=== PATIENT | male | born 2000 | race Caucasian/White ===

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

== ENCOUNTER 2019-01-22 05:52 | Emergency (ER) | payer OTHER ==
--- NOTE | 2019-01-22 05:56 | PDOC ---
History of Present Illness - General Stated Complaint: FAST HEART RATE Time Seen by Provider: 01/22/19 05:55 History Source: Patient - History of Present Illness Initial Comments: 01/22/19 06:03 The patient is a 18 year old male with no reported significant PMHx who presents to the ED c/o fast heart rate. Patient reports that he drank two energy drinks (each containing 350 mg of caffeine) yesterday. The first drink was around 9-10 a.m. and the second drink was around 5-6 p.m. yesterday. The patient also had two beer around 12:30 a.m. Patient states he got home around 3:30 a.m. and when he was unable to sleep because his heart was racing he decided to come to the ED. The patient denies associated chest pain, lightheadedness, shortness of breath. States he had an episode of palpitations on one prior occasion for which he was evaluated in another ED. No cardiology evaluation; no known history of familial cardiac at a young age. As per EMR, patient evaluated in our ED in 2014 for anterior chest that radiated to his back. No concerning findings on EKG or CT chest, symptomatic improvement with NSAID and patient discharged home. Past History - Past Medical History Allergies/Adverse Reactions: Allergies Allergy/AdvReac Type Severity Reaction Status Date / Time No Known Allergies Allergy Verified 02/05/18 03:27 Home Medications: Ambulatory Orders NK [No Known Home Medication] 01/22/19 Anemia: No Asthma: No Cancer: No COPD: No - Surgical History Abdominal Surgery: No Appendectomy: No Cardiac Surgery: No Cholecystectomy: No - Immunization History Immunization Up to Date: Yes - Psycho Social/Smoking Cessation Hx Smoking Status: No Smoking History: Never smoked Have you smoked in the past 12 months: No Number of Cigarettes Smoked Daily: 0 Hx Alcohol Use: No Drug/Substance Use Hx: No Substance Use Type: None Review of Systems - Review of Systems Constitutional: No: Chills, Fever Respiratory: No: Shortness of Breath Cardiac (ROS): Yes: Palpitations. No: Lightheadedness, Syncope ABD/GI: No: Constipated, Diarrhea, Nausea, Vomiting *Physical Exam - Physical Exam Comments: 01/22/19 06:27 Triage VS reviewed General: well appearing, mildly anxious, NAD CV: S1, S2, RRR no murmur Respiratory: CLTA B/L Abdomen: soft, non-tender Extremity: no lower extremity edema Neuro: A&O x3, CN II-XII intact Heart Score/ECG Review - ECG Impressions Comment:: 01/22/19 06:13 HR 76, NSR with no MARISELA/STD/TWI, good R wave progression V1-V6 ED Treatment Course - LABORATORY CBC & Chemistry Diagram: 01/22/19 06:25 01/22/19 06:25 Medical Decision Making - Medical Decision Making 01/22/19 06:11 18 y/o male with palpitations; h/o excessive caffeine intake over the last 24 hours. No complaints of active chest pain. VS unremarkable EKG non-ischemic as documented in EKG section of EMR Clinical suspicion for caffeine induced palpitations, will obtain Troponin x1 to r/o any cardiac muscle damage 2/2 to ischemic demand as well as CBC to r/o anemia, CMP to r/o electrolyte abnormality, Alcohol level to r/o acute intoxication as palpitations etiology. Cardiac Monitoring, CXR. Reassess 01/22/19 06:36 Bedside U/S shows no R ventricular strain, good contractility, no effusion. CXR, Labs pending. 01/22/19 07:04 CBC unremarkable Troponin, CMP, Serum Alcohol and CXR pending Patient signed out to Dr. Mejia (PGY-2) and Dr. Mckeon (Attending) for further management. Pending (-) Troponin, no acute pathology on CXR, patient can be discharged home with PMD follow-up for further evaluation. Discharge - Discharge Information Problems reviewed: Yes Clinical Impression/Diagnosis: Palpitations - Follow up/Referral Referrals: Blayne Wise [Primary Care Provider] - - Patient Discharge Instructions - Post Discharge Activity
[2019-01-22 06:10] VITALS: TEMP 99; BMI 26.4
--- NOTE | 2019-01-22 06:23 | PDOC ---
Attending Attestation - Resident Resident Name: Shellie Cooper - ED Attending Attestation I have performed the following: I have examined & evaluated the patient, The case was reviewed & discussed with the resident, I agree w/resident's findings & plan - HPI HPI: 01/22/19 06:23 Pt comes with palpitations; drank 2 energy drinks and a couple of beers. - Physicial Exam PE: 01/22/19 06:33 Normal exam normal vitals normal EKG agree with resident exam - Medical Decision Making 01/22/19 06:34 Labs pending and CXR pending; pt will be signed out to the day attending.
[2019-01-22 06:57] LABS: BASO % 0.7 % (0-2.0); EOS % 1.9 % (0-4.5); HEMATOCRIT 41.1 % (35.4-49); HEMOGLOBIN 14.6 GM/dL (11.7-16.9); LYMPH % 22.4 % (8-40); MCH 31.6 pg (25.7-33.7); MCHC 35.6 g/dl (32.0-35.9); MEAN CELL VOLUME 88.9 fl (80-96); MEAN PLT VOLUME 9.8 fl (7.5-11.1); MONO % 8.5 % (3.8-10.2); NEUT % 66.5 % (42.8-82.8); PLATELET COUNT 181 K/MM3 (134-434); RBC 4.62 M/mm3 (4.00-5.60); RDW 12.7 % (11.9-15.9); WHITE BLOOD COUNT 10.6 K/mm3 (4.0-10.0)
[2019-01-22 07:26] LABS: ALBUMIN 4.3 g/dl (3.4-5.0); ALK PHOS 63 U/L (45-117); ANION GAP 9 MMOL/L (8-16); BILIRUBIN,TOTAL 0.4 mg/dL (0.2-1); BLOOD UREA NITROGEN 22.4 mg/dL (7-18); CALCIUM 9.1 mg/dL (8.5-10.1); CHLORIDE 108 mmol/L (98-107); CO2 26 mmol/L (21-32); GLUCOSE,RANDOM 96 mg/dL (74-106); POTASSIUM 3.9 mmol/L (3.5-5.1); SGOT/AST 21 U/L (15-37); SGPT/ALT 36 U/L (13-61); SODIUM 143 mmol/L (136-145); TOT PROT 6.4 g/dl (6.4-8.2)
--- NOTE | 2019-01-22 07:38 | PDOC ---
*Physical Exam - Vital Signs Last Vital Signs Temp Pulse Resp BP Pulse Ox 99 F 88 28 H 135/64 99 01/22/19 06:07 01/22/19 07:32 01/22/19 07:32 01/22/19 07:32 01/22/19 07:32 - Physical Exam General Appearance: Yes: Nourished, Appropriately Dressed. No: Apparent Distress HEENT: positive: Normal ENT Inspection, Normal Voice Neck: positive: Supple Respiratory/Chest: positive: Lungs Clear, Normal Breath Sounds. negative: Respiratory Distress Cardiovascular: positive: Regular Rhythm, Regular Rate, S1, S2 Vascular Pulses: Dorsalis-Pedis (R): 2+, Doralis-Pedis (L): 2+ Gastrointestinal/Abdominal: positive: Normal Bowel Sounds, Flat, Soft. negative : Guarding, Rebound Rectal Exam: positive: deferred Lymphatic: negative: Adenopathy Musculoskeletal: positive: Normal Inspection. 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 II-XII NML intact, Fully Oriented, Alert, Normal Mood/ Affect, Normal Response, Motor Strength /5 ED Treatment Course - LABORATORY CBC & Chemistry Diagram: 01/22/19 06:25 01/22/19 06:25 - ADDITIONAL ORDERS Additional order review: Laboratory Results 01/22/19 01/22/19 06:25 06:25 Sodium 143 Potassium 3.9 Chloride 108 H Carbon Dioxide 26 Anion Gap 9 BUN 22.4 H Creatinine 1.0 Est GFR (CKD-EPI)AfAm 125.90 Est GFR (CKD-EPI)NonAf 108.63 Random Glucose 96 Calcium 9.1 Total Bilirubin 0.4 AST 21 ALT 36 Alkaline Phosphatase 63 Creatine Kinase 202 Troponin I < 0.02 Total Protein 6.4 Albumin 4.3 Alcohol, Quantitative < 3.0 01/22/19 06:25 RBC 4.62 MCV 88.9 MCHC 35.6 RDW 12.7 MPV 9.8 Neutrophils % 66.5 D Lymphocytes % 22.4 D Monocytes % 8.5 Eosinophils % 1.9 Basophils % 0.7 - RADIOLOGY Radiograph Interpretation: CXR: Chest: Palpitations Single view of the chest has been submitted. Since 03/27/2015 there is no change of an adverse nature. There are clear lungs, normal mediastinum and sharp angles. The bones and soft tissues are intact. Impression: No acute chest pathology. Medical Decision Making - Medical Decision Making Received patient as sign out from night team pending labs, a CXR, and final ED disposition. Bradley is a 18 year old male with no reported significant PMHx who presents to the ER with palpitations and difficulty sleeping after ingesting a suspiciously large amount of caffeinated energy drink beverages last night. Labs: Elevated BUN - Patient was given half a liter of water to drink CXR: Unremarkable - Impression: No acute chest pathology. Re-assessment: When I evaluated the patient he no longer was experiencing palpitations, states the prior doctor cured me, and that he has no more issues. He drank a liter of fluid, ate a turkey sandwich and crackers. He requests to be discharged and states he will follow up with his primary care doctor this week. He reports he will also call a certified nursing attendant to be evaluated. Disposition: Home with PCP and cardio FU Discharge - Discharge Information Problems reviewed: Yes Clinical Impression/Diagnosis: Palpitations Condition: Improved Disposition: HOME - Admission No - Follow up/Referral Referrals: Blayne Wise [Primary Care Provider] - [facility] [place] [facility] [Provider Group] Richie Lu MD [Staff Physician] - - Patient Discharge Instructions Patient Printed Discharge Instructions: DI for Palpitations Additional Instructions: You came into the ER with palpitations after you drank a number of energy drinks last evening. We looked at your bloodwork which showed a slight elevated Blood urea nitrogen enzyme which suggests you might be a little dehydrated. Please do your best to stay hydrated as it is good for you and can prevent pain and other problems. Please make sure to follow up with both your primary care doctor and a certified nursing attendant in the next 7 to 10 days to make sure you are feeling well, getting better, and being taken care of. Please try to stay away from having too much caffeine or other energy drinks. Come back to the ER immediately if you experience any worsening of your chest pain, palpitations, or any other new or worsening concerns. Thank you for coming to the [facility] ER. We hope you feel better soon! Print Language: KINYARWANDA - Post Discharge Activity
[2019-01-22 08:27] VITALS: BP 126/65; PULSE 82
--- NOTE | 2019-01-22 09:48 | EKG ---
Test Reason : Blood Pressure : / mmHG Vent. Rate : 076 BPM Atrial Rate : 076 BPM P-R Int : 146 ms QRS Dur : 098 ms QT Int : 380 ms P-R-T Axes : 049 064 042 degrees QTc Int : 427 ms NORMAL SINUS RHYTHM NORMAL ECG WHEN COMPARED WITH ECG OF 27-MAR-2015 08:57, VENT. RATE HAS INCREASED BY 28 BPM Confirmed by JOSE JIMENEZ MD ([id number]) on 01/22/2019 9:48:36 AM Referred By: Confirmed By:JOSE JIMENEZ MD
== END 2019-01-22 08:25 | disposition home or self-care (01) ==
LOC: JER 05:52
PROC: B246ZZZ Ultrasonography of Right and Left Heart (ICD-10-PCS; principal; 2019-01-22)
DX: R00.2 Palpitations (principal); T43.615A Adverse effect of caffeine, initial encounter; Y92.038 Other place in apartment as the place of occurrence of the external cause
CPT/HCPCS: 36415; 71045-TC-FY; 80053; 80307; 82550; 82553; 84484; 85025; 93005; 93010; 93308; 99284-25

== ENCOUNTER 2019-01-28 02:01 | Emergency (ER) | payer OTHER ==
--- NOTE | 2019-01-28 02:50 | PDOC ---
History of Present Illness - General Chief Complaint: Palpitations Stated Complaint: RAPID HEART BEAT Time Seen by Provider: 01/28/19 02:50 - History of Present Illness Initial Comments: 18 year male with no PMH and heavy caffeine use in the past presenting with palpitations when trying to sleep at night. States that he stopped drinking caffeine 5 days prior when he had an episode of "caffeine overdose" where he was up for two dyas and had severe palpitations. Since then he has had difficulty sleeping at night and still has occasional palpitations. He describe these episodes as "panic attacks" where he becomes very worried about this health and he then notices "heavy pounding beats" in his chest with total body warmth. Denies any chest pain, nausea, vomiting, syncope, fevers, chills, or other symptoms. 01/28/19 04:17 Past History - Past Medical History Allergies/Adverse Reactions: Allergies Allergy/AdvReac Type Severity Reaction Status Date / Time No Known Allergies Allergy Verified 01/28/19 02:49 Home Medications: Ambulatory Orders NK [No Known Home Medication] 01/22/19 Anemia: No Asthma: No Cancer: No COPD: No - Surgical History Abdominal Surgery: No Appendectomy: No Cardiac Surgery: No Cholecystectomy: No - Immunization History Td Vaccination: Yes TDAP Vaccination: Yes Immunization Up to Date: Yes - Psycho Social/Smoking Cessation Hx Smoking Status: No Smoking History: Never smoked Have you smoked in the past 12 months: No Number of Cigarettes Smoked Daily: 0 Hx Alcohol Use: No Drug/Substance Use Hx: No Substance Use Type: None Review of Systems - Review of Systems Constitutional: No: Chills, Diaphoresis, Fever, Loss of Appetite HEENTM: No: Tearing, Ear Pain Respiratory: No: Cough, Orthopnea, Shortness of Breath, SOB with Exertion Cardiac (ROS): Yes: Palpitations. No: Chest Pain, Lightheadedness, Syncope, Chest Tightness ABD/GI: No: Poor Appetite, Poor Fluid Intake, Rectal Bleeding : No: Dysuria, Discharge, Frequency Musculoskeletal: No: Back Pain, Joint Pain, Joint Swelling Integumentary: No: Bruising Neurological: No: Headache, Numbness, Paresthesia, Pre-Existing Deficit, Seizure Psychiatric: Yes: Anxiety. No: Depression Hematologic/Lymphatic: No: Anemia, Blood Clots, Easy Bleeding, Easy Bruising *Physical Exam - Physical Exam General Appearance: Yes: Nourished, Appropriately Dressed. No: Apparent Distress HEENT: positive: EOMI, PHOEBE, Normal ENT Inspection, Normal Voice Neck: positive: Trachea midline, Normal Thyroid, Supple. negative: Tender, Rigid Respiratory/Chest: positive: Lungs Clear, Normal Breath Sounds. negative: Chest Tender, Respiratory Distress, Accessory Muscle Use Cardiovascular: positive: Regular Rhythm, Regular Rate Gastrointestinal/Abdominal: positive: Normal Bowel Sounds, Flat, Soft. negative : Tender Lymphatic: negative: Adenopathy, Tenderness Musculoskeletal: positive: Normal Inspection Extremity: positive: Normal Capillary Refill, Normal Inspection, Normal Range of Motion. negative: Tender Integumentary: positive: Normal Color, Dry, Warm Neurologic: positive: Fully Oriented, Alert, Normal Mood/Affect, Normal Response , Motor Strength 5/5 Medical Decision Making - Medical Decision Making 18 year old male with palpitations after cessation of heavy caffeine usage. EKG demonstrating rate 69, NM 132, QRS 100, QTc 426, normal axis, and no ST or t wave changes. Symptoms heavily resolved after beandryl 25 PO. Will send home with PRN Benadryl usage instructions and follow up with PCP and table games dealer. 01/28/19 05:10 Discharge - Discharge Information Problems reviewed: Yes Clinical Impression/Diagnosis: Palpitations Condition: Improved Disposition: HOME - Admission No - Follow up/Referral Referrals: Blayne Wise [Primary Care Provider] - - Patient Discharge Instructions Patient Printed Discharge Instructions: DI for Palpitations Additional Instructions: Please take your Benadryl as needed for sleep but try not to use it every night. You need to follow up with your primary care doctor and also schedule an appointment with a table games dealer to make sure it is a not a difficult to detect heart problem. - Post Discharge Activity
[2019-01-28] MEDS ORDERED: diphenhydrAMINE HCL 25 MG CAPSULE (FP) PO ONE ×2 (04:22→04:25)
--- NOTE | 2019-01-28 04:31 | PDOC ---
Attending Attestation - Resident Resident Name: KarissaDonnellluischerise - ED Attending Attestation I have performed the following: I have examined & evaluated the patient, The case was reviewed & discussed with the resident, I agree w/resident's findings & plan, Exceptions are as noted - HPI HPI: 01/28/19 04:32 Bradley is a 18 yo M who presents to the ER for evaluation of anxiety He was seen in the ER on 01/22 for excess caffeine use associated with palpitations Since then he has had difficulty sleeping at night and still has occasional palpitations. He is very concerned about his health, and is intermittently having panic attacks Denies actual chest pain, does have chest pounding No nausea, vomiting, syncope, fevers, chills, or other symptoms. - Physicial Exam PE: 01/28/19 04:43 GENERAL: The patient is in no acute distress. ENT: Moist mucous membranes. NECK: Normal range of motion, supple LUNGS: Breath sounds equal, clear to auscultation bilaterally. No wheezes, and no crackles. HEART:Regular rate and rhythm, normal S1 and S2 without murmur, rub or gallop. ABDOMEN: Soft, nontender, normoactive bowel sounds. EXTREMITIES: Normal range of motion, no edema. NEUROLOGICAL: Cranial nerves II through XII grossly intact. Normal speech. No focal neurological deficits. SKIN: Warm, Dry, normal turgor, no rashes or lesions noted. - Medical Decision Making 01/28/19 04:43 Twelve-lead EKG was performed and reviewed by me. There is normal sinus rhythm with a normal rate. The axis is normal. The intervals are normal. There are no ST or T wave abnormalities. Impression: Normal twelve-lead EKG Will plan to discharge to home Pt can follow up with PMD for Holter and anxiolysis
[2019-01-28 06:22] VITALS: BP 124/60; PULSE 85; TEMP 97.6; BMI 26.4
--- NOTE | 2019-01-28 14:24 | EKG ---
Test Reason : Blood Pressure : / mmHG Vent. Rate : 069 BPM Atrial Rate : 069 BPM P-R Int : 132 ms QRS Dur : 100 ms QT Int : 398 ms P-R-T Axes : -11 061 040 degrees QTc Int : 426 ms NORMAL SINUS RHYTHM NON-SPECIFIC INTRA-VENTRICULAR CONDUCTION DELAY WHEN COMPARED WITH ECG OF 22-JAN-2019 06:00, NO SIGNIFICANT CHANGE WAS FOUND Confirmed by JOSE JIMENEZ MD ([id number]) on 01/28/2019 2:23:53 PM Referred By: Confirmed By:JOSE JIMENEZ MD
== END 2019-01-28 05:21 | disposition home or self-care (01) ==
LOC: JER 02:01
DX: F41.9 Anxiety disorder, unspecified (principal); R00.2 Palpitations
CPT/HCPCS: 93005; 93010; 99283-25

== ENCOUNTER 2019-05-02 16:39 | Emergency (ER) | payer OTHER ==
[2019-05-02 17:08] VITALS: BP 122/66; PULSE 75; TEMP 98.2; BMI 26.4
--- NOTE | 2019-05-02 19:52 | PDOC ---
History of Present Illness - General Chief Complaint: Sore Throat Stated Complaint: THROAT PAIN Time Seen by Provider: 05/02/19 18:40 - History of Present Illness Initial Comments: 05/02/19 19:50 19-year-old male without comorbidities presents for evaluation of sore throat x3 days without systemic symptoms. Patient was seen in urgent care yesterday negative rapid strep and mono test placed on a course of antibiotics for presumptive strep throat and given an injection of Decadron he comes here for further evaluation and no resolution of pain Past History - Past Medical History Allergies/Adverse Reactions: Allergies Allergy/AdvReac Type Severity Reaction Status Date / Time No Known Allergies Allergy Verified 05/02/19 17:08 Home Medications: Ambulatory Orders NK [No Known Home Medication] 01/22/19 Anemia: No Asthma: No Cancer: No Cardiac Disorders: (PROLAPSED MITRAL VALVE) COPD: No - Surgical History Abdominal Surgery: No Appendectomy: No Cardiac Surgery: No Cholecystectomy: No - Immunization History Td Vaccination: Yes TDAP Vaccination: Yes Immunization Up to Date: Yes - Psycho Social/Smoking Cessation Hx Smoking Status: No Smoking History: Never smoked Have you smoked in the past 12 months: No Number of Cigarettes Smoked Daily: 0 Hx Alcohol Use: Yes Drug/Substance Use Hx: No Substance Use Type: None Review of Systems - Review of Systems Constitutional: No: Fever HEENTM: Yes: Throat Pain *Physical Exam - Vital Signs Last Vital Signs Temp Pulse Resp BP Pulse Ox 98.2 F 75 16 122/66 97 05/02/19 17:05 05/02/19 17:05 05/02/19 17:05 05/02/19 17:05 05/02/19 17:05 - Physical Exam 05/02/19 19:50 GENERAL: The patient is awake, alert, and fully oriented, in no acute distress. HEAD: Normal with no signs of trauma. EYES: sclera anicteric, conjunctiva clear. ENT: Ears normal tympanic membranes normal oropharynx clear mild erythema, uvula midline NECK: Normal range of motion LUNGS: Breath sounds equal, clear to auscultation bilaterally. No wheezes, and no crackles. HEART: S1 and S2 without murmur, rub or gallop. ABDOMEN: Soft, nontender, normoactive bowel sounds. No guarding, no rebound. No masses. EXTREMITIES: Normal range of motion, no edema. No clubbing or cyanosis. No cords, erythema, or tenderness. NEUROLOGICAL: Cranial nerves II through XII grossly intact. Normal speech, normal gait. PSYCH: Normal mood, normal affect. SKIN: Warm, Dry, normal turgor, no rashes or lesions noted. Medical Decision Making - Medical Decision Making 05/02/19 19:50 Patient is presumptively treated for strep nothing to do from an emergency standpoint recommend warm salt water gargles and a short course of an anti- inflammatory to help decrease the swelling. Follow-up with primary care physician Discharge - Discharge Information Problems reviewed: Yes Clinical Impression/Diagnosis: Acute pharyngitis Condition: Stable Disposition: HOME - Admission No - Follow up/Referral Referrals: Blayne Wise [Primary Care Provider] - - Patient Discharge Instructions Additional Instructions: Warm salt water gargles 5-6 times a day will help with your sore throat. You may take Motrin 600 mg 4 times a day to help with the inflammation. Only do that for 3 days with meals only. Return to the emergency room for worsening symptoms and without fail follow-up with your primary care physician in 2 to 3 days for further evaluation and treatment options. - Post Discharge Activity
== END 2019-05-02 20:00 | disposition home or self-care (01) ==
LOC: JERFT 16:39
DX: J02.9 Acute pharyngitis, unspecified (principal)
CPT/HCPCS: 99281-25

== ENCOUNTER 2019-12-30 18:34 | Emergency (ER) | payer OTHER ==
[2019-12-30 19:01] VITALS: BP 127/60; PULSE 102; TEMP 98.3; BMI 25.0
[2019-12-30] MEDS ORDERED: LORazepam 0.5 MG TABLET PO ONE (19:40)
--- NOTE | 2019-12-30 19:46 | PDOC ---
History of Present Illness - General Chief Complaint: Palpitations Stated Complaint: HEART PALPITATIONS Time Seen by Provider: 12/30/19 19:07 History Source: Patient Past History - Medical History Allergies/Adverse Reactions: Allergies Allergy/AdvReac Type Severity Reaction Status Date / Time No Known Allergies Allergy Verified 12/30/19 19:01 Home Medications: Ambulatory Orders NK [No Known Home Medication] 01/22/19 Anemia: No Asthma: No Cancer: No Cardiac Disorders: (PROLAPSED MITRAL VALVE) COPD: No - Surgical History Abdominal Surgery: No Appendectomy: No Cardiac Surgery: No Cholecystectomy: No - Immunization History Td Vaccination: Yes TDAP Vaccination: Yes Immunization Up to Date: Yes - Psycho-Social/Smoking History Smoking Status: No Smoking History: Never smoked Have you smoked in the past 12 months: No Number of Cigarettes Smoked Daily: 0 Information on smoking cessation initiated: Yes - Substance Abuse Hx (Audit-C & DAST Scrn) How often the patient has a drink containing alcohol: Never Score: In Men: 4 or > Positive; In Women: 3 or > Positive: 0 Screen Result (Pos requires Nsg. Audit-10AR): Negative In the last yr the pt used illegal drug/Rx for NonMed reason: No Score: Yes response is considered Positive: 0 Screen Result (Positive result requires Nsg. DAST-10): Negative Review of Systems - Review of Systems Constitutional: No: Chills, Fever Respiratory: No: Cough, Shortness of Breath Cardiac (ROS): Yes: Palpitations. No: Chest Pain, Lightheadedness, Syncope *Physical Exam - Vital Signs Last Vital Signs Temp Pulse Resp BP Pulse Ox 98.3 F 102 H 19 127/60 100 12/30/19 18:57 12/30/19 18:57 12/30/19 18:57 12/30/19 18:57 12/30/19 18:57 - Physical Exam General Appearance: Yes: Appropriately Dressed. No: Apparent Distress HEENT: positive: Normal Voice Neck: positive: Supple Respiratory/Chest: positive: Lungs Clear, Normal Breath Sounds. negative: Respiratory Distress Cardiovascular: positive: Regular Rate, S1, S2 Integumentary: positive: Dry, Warm Neurologic: positive: Fully Oriented, Alert, Normal Mood/Affect Heart Score/ECG Review - ECG Intrepretation Comment:: 12/30/19 19:57 Twelve-lead EKG was performed and reviewed by me. There is normal sinus rhythm with a normal rate. The axis is normal. The intervals are normal. There are no ST or T wave abnormalities. Impression: Normal twelve-lead EKG Medical Decision Making - Medical Decision Making 12/30/19 19:41 19-year-old male self endorses history of anxiety here with palpitations. Patient states for the past year he has had on and off palpitations that he feels is due to anxiety. Sometimes get numbness of his upper extremities. No CP, SOB, dizziness or syncope. Has been evaluated by department secretary and his PMD with no clear etiology. States he has never been on meds for anxiety and never been evaluated by psych or therapist. No illicit drug use. States palpitations recur tonight but has since improved. No chest pain or shortness of breath. No SI see exam Palpitations Recurrent Neg w/u with cards and PMD in past Possibly anxiety No recent stressors or fmhx Denies illicit drug use Small of dose of ativan given in ED EKG wnl Dc to f/u w/ pmd for possible psych or therapy referral Discharge - Discharge Information Problems reviewed: Yes Clinical Impression/Diagnosis: Heart palpitations Condition: Improved Disposition: HOME - Follow up/Referral Referrals: Blayne Wise [Primary Care Provider] - - Patient Discharge Instructions Additional Instructions: Please follow-up with your PMD for possible referral to psych or therapy - Post Discharge Activity
[2019-12-30] MEDS ORDERED: LORazepam 0.5 MG TABLET ONE (19:51)
--- NOTE | 2020-01-02 11:36 | EKG ---
Test Reason : Blood Pressure : / mmHG Vent. Rate : 097 BPM Atrial Rate : 097 BPM P-R Int : 148 ms QRS Dur : 096 ms QT Int : 338 ms P-R-T Axes : 004 -04 018 degrees QTc Int : 429 ms NORMAL SINUS RHYTHM NORMAL ECG WHEN COMPARED WITH ECG OF 28-JAN-2019 04:31, VENT. RATE HAS INCREASED Confirmed by WAN ROBLEDO MD ([id number]) on 01/02/2020 11:36:04 AM Referred By: Confirmed By:WAN ROBLEDO MD
== END 2019-12-30 21:22 | disposition home or self-care (01) ==
LOC: JER 18:34 → JERFT 18:34
DX: R00.2 Palpitations (principal)
CPT/HCPCS: 93005; 93010; 99284-25

== ENCOUNTER 2021-06-02 23:06 | Emergency (ER) | payer OTHER ==
[2021-06-02 23:29] VITALS: BP 128/78; PULSE 80; TEMP 98; BMI 31.6
[2021-06-03 01:15] LABS: BASO % 1.2 % (0-2.0); HEMATOCRIT 45.5 % (35.4-49); HEMOGLOBIN 15.6 GM/dL (11.7-16.9); LYMPH % 33.1 % (8-40); MCH 30.1 pg (25.7-33.7); MCHC 34.3 g/dl (32.0-35.9); MEAN CELL VOLUME 87.7 fl (80-96); MEAN PLT VOLUME 9.3 fl (7.5-11.1); MONO % 11.3 % (3.8-10.2); NEUT % 50.4 % (42.8-82.8); PLATELET COUNT 193 10^3/uL (134-434); RBC 5.18 M/mm3 (4.00-5.60); RDW 13.3 % (11.9-15.9); WHITE BLOOD COUNT 7.8 K/mm3 (4.0-10.0)
[2021-06-03 01:18] LABS: ALBUMIN 4.5 g/dl (3.4-5.0); BLOOD UREA NITROGEN 16.9 mg/dL (7-18); CALCIUM 9.2 mg/dL (8.5-10.1)
[2021-06-03 01:23] LABS: BILIRUBIN,TOTAL 0.4 mg/dL (0.2-1)
== END 2021-06-03 02:36 | disposition home or self-care (01) ==
LOC: JER 23:06
DX: R07.9 Chest pain, unspecified (principal)
CPT/HCPCS: 36415; 71046-TC-FY; 80053; 84484; 85025; 93005; 93010; 99285-25

== ENCOUNTER 2022-03-18 18:20 | Emergency (ER) | payer OTHER ==
[2022-03-18 19:02] VITALS: BP 119/66; PULSE 88; RESP 18; TEMP 98; BMI 35.6
[2022-03-18] MEDS ORDERED: ONDANSETRON *ODT* 4 MG TABLET SL ONE (20:09)
[2022-03-18] MEDS ORDERED: ONDANSETRON *ODT* 4 MG TABLET ONE (20:21)
== END 2022-03-18 20:39 | disposition home or self-care (01) ==
LOC: JER 18:20
DX: J06.9 Acute upper respiratory infection, unspecified (principal)
CPT/HCPCS: 99283-25; Q0162

== ENCOUNTER 2022-05-28 18:42 | Emergency (ER) | payer OTHER ==
[2022-05-28 19:18] VITALS: RESP 20; TEMP 98; BMI 33.7
[2022-05-29 03:05] VITALS: BP 138/82; PULSE 74
== END 2022-05-29 02:16 | disposition home or self-care (01) ==
LOC: JER 18:42 → UNDOADMIN 20:44 → JERBED 20:44 → JER 05-29 02:16
DX: R07.89 Other chest pain (principal)
CPT/HCPCS: 70450-TC; 71046-TC-FY; 76705-TC; 93005; 93010; 99285-25

== ENCOUNTER 2022-06-06 14:38 | Emergency (ER) | payer OTHER ==
[2022-06-06 15:05] VITALS: BP 134/73; PULSE 86; RESP 16; TEMP 98.1; BMI 33.5
== END 2022-06-06 17:54 | disposition home or self-care (01) ==
LOC: JERFT 14:38
DX: R22.2 Localized swelling, mass and lump, trunk (principal); R59.0 Localized enlarged lymph nodes
CPT/HCPCS: 99281-25